=== PATIENT | male | born 2000 | race Two or more races ===

== ENCOUNTER 2021-05-09 15:42 | Emergency (ER) | payer BC ==
[2021-05-09] MEDS ORDERED: Diphtheria,Pertussis(Acell),Tetanus Vaccine 0.5 ML Syringe IM ONE (16:52)
[2021-05-09] MEDS ORDERED: Lidocaine 1% 5 ML VIAL INJECT ONE (16:52)
[2021-05-09] MEDS ORDERED: Octyl 2-Cyanoacrylate 1 APPLIC TUBE TOP ONE (16:56)
[2021-05-09 17:24] VITALS: BP 140/81; PULSE 83
== END 2021-05-09 17:36 | disposition home or self-care (01) ==
LOC: MW.ED 15:42
DX: S61.216A Laceration without foreign body of right little finger without damage to nail, initial encounter (principal); Z23 Encounter for immunization; W26.8XXA Contact with other sharp object(s), not elsewhere classified, initial encounter
CPT/HCPCS: 12001; 90471; 90715; 99282; A9270